=== PATIENT | male | born 1990 | race American Indian/Alaskan Native ===

== ENCOUNTER 2022-01-09 05:45 | Emergency (ER) | payer SELFPAY ==
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
[2022-01-09] MEDS ORDERED: traMADol 50 MG TAB PO ONE (10:03)
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
[2022-01-09 10:44] VITALS: BP 120/80
== END 2022-01-09 10:44 | disposition home or self-care (01) ==
LOC: ED 05:45
DX: S63.502A Unspecified sprain of left wrist, initial encounter (principal); Z79.899 Other long term (current) drug therapy; V89.2XXA Person injured in unspecified motor-vehicle accident, traffic, initial encounter; Y93.89 Activity, other specified; Y92.89 Other specified places as the place of occurrence of the external cause; Y99.8 Other external cause status
CPT/HCPCS: 70450; 99284